=== PATIENT | male | born 1960 | race Caucasian/White ===

== ENCOUNTER 2022-08-12 10:57 | Inpatient (IN) | payer SELFPAY ==
--- OUTSIDE RECORDS SUMMARY | 2022-08-12 10:59 | XMS REPORT | Continuity of Care Document ---
:1960 Author Organization [facility] t Address [address] [place] [address] Care Team Providers Name Role Phone NEW ANAYA Attending Clinician Unavailable Problems This patient has no known problems. Allergies, Adverse Reactions, Alerts This patient has no known allergies or adverse reactions. Medications This patient has no known medications. Procedures This patient has no known procedures. Encounters Start End Encounter Admission Attending Care Care Encounter Source Date/Time Date/Time Type Type Clinicians Facility Department ID 2020-07-19 2020-07-20 Outpatient [facility] MED [id number] [facility] 13:10:00 21:09:00 Results This patient has no known results.
[2022-08-12 12:18] LABS: Absolute Lymphocytes (CBC) 1.4 K/uL (0.7-4.9); Hematocrit 44.6 % (39.6-49.0); Lymphocytes % 14.3 % (15.3-44.8); MCV 91.1 fL (80-100); MPV 7.3 fL (7.6-11.3)
[2022-08-12 12:32] LABS: Albumin 4.4 g/dL (3.4-5.0); Bilirubin Total 0.6 mg/dL (0.2-1.0); Potassium 4.4 mmol/L (3.5-5.1); Protein, Total 8.5 g/dL (6.4-8.2)
--- NOTE | 2022-08-12 12:55 | RAD REPORT ---
EXAM DESCRIPTION: CT - Chest Abdomen Pelvis W Cont - 08/12/2022 12:25 pm CLINICAL HISTORY: right flank pain, chest pain COMPARISON: No comparisons TECHNIQUE: Following dynamic enhancement using 100 milliliters nonionic IV contrast, axial imaging o f the chest, abdomen and pelvis was performed. Biphasic technique was utilized through the abdomen. No oral contrast administered. All CT scans are performed using dose optimization technique as appropriate and may include automated exposure control or mA/KV adjustment according to patient size. FINDINGS: Lungs are clear of mass and infiltrate. Minimal lung base atelectasis present. No pleural effusion, pleural thickening or pneumothorax. No significant aortic or pulmonary arterial tree findin g. Mediastinal and hilar regions show no mass or abnormal lymphadenopathy. No chest wall mass or axil bernadette lymphadenopathy. Small hiatal hernia is present. Distal esophagus near the hernia shows mild cir cumferential wall thickening. No mass is seen. This is of on certain significance given the absence o f symptoms. Nondisplaced fractures of the posterior right ninth and tenth ribs are present. The The liver, spleen and pancreas show no suspicious findings. Gallbladder and biliary tree are unremark able. Gallstones can be occult on CT imaging. Symmetric renal function is seen with no mass or hydro nephrosis. No adrenal abnormalities. Urinary bladder is distended with the dome at the umbilicus lev el. There is a focal 11 millimeter nodularity at the prostate -bladder junction. Overall prostate gla nd is not enlarged. A focal prostate mass or a urinary bladder base mass cannot be excluded. No dilated bowel loops or focal bowel wall thickening. No acute GI findings seen. No additional sites of fracture or acute bone finding identifiable. No significant vascular findings. IMPRESSION: Nondisplaced posterior right ninth and tenth rib fractures are present. No injury to adj acent structures. Small focal 11 mm mass at the prostate-bladder junction could be a prostate mass or a bladder base ma ss. Urinary bladder is distended with the dome of reaching the level of the umbilicus.
[2022-08-12] MEDS ORDERED: MORPHINE 4 MG/ML SYR ONE (13:13)
[2022-08-12] MEDS ORDERED: ONDANSETRON 4 MG/2 ML VIAL ONE (13:13)
[2022-08-12] MEDS ORDERED: HYDROMORPHONE HCL 1 MG/ML INJ ONE ×2 (13:26→15:24)
[2022-08-12 13:44] LABS: Urine Blood Trace-intact (Negative); Urine Glucose Negative (Negative); Urine Protein Negative (Negative); Urine pH 5.5 (5.0-7.0)
[2022-08-12 13:59] LABS: SARS-CoV-2 Antigen Rapid Res Negative (Negative)
--- NOTE | 2022-08-12 14:14 | EDPHYS ---
Physician Documentation [facility] Name: Ascencion Han Age: 61 yrs Sex: Male : 1960 Arrival Date: 08/12/2022 Time: 11:00 Bed 6 Private MD: ED Physician Matt Arellano HPI: 08/12 11:25 This 61 yrs old Male presents to ER via Ambulatory with complaints of Flank Pain. jmm 11:25 The patient complains of pain in the right flank. Onset: The symptoms/episode jmm began/occurred acutely, last night. Modifying factors: The symptoms are alleviated by remaining still, the symptoms are aggravated by movement, palpation/percussion. Associated signs and symptoms: Pertinent negatives: vomiting. Is a 61-year-old male with no known chronic medical conditions presents emerged part with complaints of right flank/rib pain beginning last night while he was performing heavy lifting. Denies shortness of breath, vomiting, dysuria.. Historical: - Allergies: 11:14 No Known Allergies; tw2 - Home Meds: 11:14 None [Active]; tw2 - PMHx: 11:14 None; tw2 - PSHx: 11:14 None; tw2 - Immunization history:: Client reports having NOT received the Covid vaccine. - Social history:: Smoking status: Patient denies any tobacco usage or history of. ROS: 11:25 Constitutional: Negative for fever, chills, and weight loss, Cardiovascular: Negative jmm for chest pain, palpitations, and edema, Respiratory: Negative for shortness of breath, cough, wheezing, and pleuritic chest pain. 11:25 Back: Positive for flank pain. 11:25 All other systems are negative. Exam: 11:25 Head/Face: atraumatic. Eyes: EOMI, no conjunctival erythema appreciated ENT: Moist jmm Mucus Membranes Neck: Trachea midline, Supple Cardiovascular: Regular rate and rhythm. No edema appreciated 11:25 Respiratory: Normal respirations, no respiratory distress appreciated Back: Normal ROM Skin: General appearance color normal MS/ Extremity: Moves all extremities, no obvious deformities appreciated, no edema noted to the lower extremities Neuro: Awake and alert Psych: Behavior is normal, Mood is normal, Patient is cooperative and pleasant 11:25 Constitutional: The patient appears alert, awake, anxious, uncomfortable. 11:25 Chest/axilla: Palpation: tenderness, that is moderate, of the right lateral posterior chest. Vital Signs: 11:11 BP 160 / 113; Pulse 98; Resp 17; Temp 98.8(TE); Pulse Ox 97% on R/A; Weight 79.38 kg tw2 (R); Height 5 ft. 8 in. (172.72 cm); Pain 10/10; 15:24 BP 152 / 104; Pulse 93; Resp 18; Pulse Ox 100% on R/A; ll1 16:30 BP 170 / 102; Pulse 93; Pulse Ox 96% ; kr3 18:32 BP 152 / 100; Pulse 92; Resp 18; Pulse Ox 97% ; kr3 11:11 Body Mass Index 26.61 (79.38 kg, 172.72 cm) tw2 MDM: 11:26 Patient medically screened. [facility] 14:12 Data reviewed: vital signs, nurses notes. Counseling: I had a detailed discussion with [facility] the patient and/or guardian regarding: the historical points, exam findings, and any diagnostic results supporting the discharge/admit diagnosis, lab results, radiology results, the need to transfer to another facility. ED course: We do not have urology self contained behavior unit teacher today. Patient has a preference for [facility]. . 15:08 ED course: [facility]. I did contact urology from [facility] in [facility] the [facility] who stated that the patient did not need inpatient care on a urologic standpoint. I discussed the patient with the hospitalist who declined transfer. I discussed the patient who recommends admission to this hospital to contact Dr. Myers. Dr. Myers was contacted via text.. 08/12 11:25 Order name: CBC with Diff; Complete Time: 12:32 [facility] 08/12 11:25 Order name: CMP; Complete Time: 12:32 [facility] 08/12 11:25 Order name: Lipase; Complete Time: 12:32 [facility] 08/12 13:29 Order name: SARS RAPID; Complete Time: 14:02 08/12 13:45 Order name: Urine Dipstick-Ancillary; Complete Time: 13:45 [facility] 08/12 16:52 Order name: CBC with Automated Diff [facility] 08/12 16:52 Order name: CBC with Automated Diff [facility] 08/12 16:52 Order name: Comprehensive Metabolic Panel [facility] 08/12 16:52 Order name: Comprehensive Metabolic Panel [facility] 08/12 16:52 Order name: Protime (+INR) [facility] 08/12 16:52 Order name: Protime (+INR) [facility] 08/12 16:52 Order name: PSA Diagnostic [facility] 08/12 16:52 Order name: PSA Diagnostic [facility] 08/12 16:52 Order name: PTT, Activated Partial Thromb [facility] 08/12 11:25 Order name: IV Saline Lock; Complete Time: 12:59 [facility] 08/12 11:25 Order name: Labs collected and sent; Complete Time: 12:59 [facility] 08/12 11:25 Order name: Urine Dipstick-Ancillary (obtain specimen); Complete Time: 13:43 [facility] 08/12 11:25 Order name: CT Chest, Abdomen, Pelvis - W/Contrast; Complete Time: 12:58 [facility] 08/12 13:10 Order name: Watt; Complete Time: 13:13 [facility] 08/12 16:52 Order name: Regular [facility] 08/12 16:52 Order name: PTT, Activated Partial Thromb [facility] 08/12 16:52 Order name: Bone Imaging Whole Body [facility] 08/12 16:52 Order name: Bone Imaging Whole Body [facility] Administered Medications: 13:05 Drug: morphine 4 mg Route: IVP; Infused Over: 4 mins; Site: right antecubital; kr3 15:22 Follow up: Response: No adverse reaction; RASS: Alert and Calm (0) ll1 13:05 Drug: Zofran (Ondansetron) 4 mg Route: IVP; Site: right antecubital; kr3 15:21 Follow up: Response: No adverse reaction; RASS: Alert and Calm (0) ll1 13:22 Drug: Dilaudid (HYDROmorphone) 1 mg Route: IVP; Site: left antecubital; kr3 15:21 Follow up: Response: No adverse reaction; RASS: Alert and Calm (0) ll1 15:20 Drug: Dilaudid (HYDROmorphone) 1 mg Route: IVP; Site: left antecubital; ll1 Disposition Summary: 08/12/22 15:34 Hospitalization Ordered Hospitalization Status: Observation matt Provider: Loli Myers Location: Telemetry/MedSurg (observation) jmm Condition: Stable(08/12/22 15:34) jmm Problem: new(08/12/22 15:34) jmm Symptoms: are unchanged(08/12/22 15:34) jmm Bed/Room Type: Standard m Room Assignment: 404(08/12/22 17:57) dw Diagnosis - Right 9th and 10th Fracture - Intractable Pain jmm Forms: - Medication Reconciliation Form jmm - SBAR form jmm Addendum: 08/15/2022 07:28 Co-signature as Attending Physician, Matt Arellano MD. r n Signatures: Dispatcher [employer] EDClaudia Sierra RN RN dw David Benton, JACQUES PA m Matt Arellano MD MD rn Pastora Prasad RN RN tw2 Ayesha Valle RN RN ll1 Radha Bartholomew RN RN kr3 Corrections: (The following items were deleted from the chart) 08/12 14:49 14:14 [facility] 14[facility]49 [facility]14 Higher level of care jmm m 14:49 14:14 Stable jmm jmm 14:49 14:14 new jmm jmm 14:49 14:14 are unchanged jmm m 14:49 14:14 Bladder Outlet Obstruction jmm jmm 14:49 14:14 Rib fracture jmm jmm 14:49 14:14 Bladder Mass jmm jmm 17:57 15:34 jmm dw
--- NOTE | 2022-08-12 14:14 | ER ---
Nurse's Notes [facility] Name: Ascencion Han Age: 61 yrs Sex: Male : 1960 Arrival Date: 08/12/2022 Time: 11:00 Bed 6 Private MD: Diagnosis: Right 9th and 10th Fracture - Intractable Pain Presentation: 08/12 11:11 Chief complaint: Patient states: my RIGHT side is hurting and it started last night. tw2 stays constant. Coronavirus screen: At this time, the client does not indicate any symptoms associated with coronavirus-19. Ebola Screen: Patient denies travel to an Ebola-affected area in the 21 days before illness onset. Initial Sepsis Screen: Does the patient meet any 2 criteria? HR > 90 bpm. No. Patient's initial sepsis screen is negative. Does the patient have a suspected source of infection? No. Patient's initial sepsis screen is negative. Initial Sepsis Screen: Does the patient meet any 2 criteria?. Risk Assessment: Do you want to hurt yourself or someone else? Patient reports no desire to harm self or others. Onset of symptoms was August 12, 2022. 11:11 Method Of Arrival: Ambulatory tw2 11:11 Acuity: MAXX 3 tw2 Triage Assessment: 11:14 General: Appears uncomfortable, well groomed, Behavior is calm, cooperative, tw2 appropriate for age. Pain: Complains of pain in right SIDE pain. GI: Reports right side pain Patient currently denies nausea, vomiting. Historical: - Allergies: 11:14 No Known Allergies; tw2 - Home Meds: 11:14 None [Active]; tw2 - PMHx: 11:14 None; tw2 - PSHx: 11:14 None; tw2 - Immunization history:: Client reports having NOT received the Covid vaccine. - Social history:: Smoking status: Patient denies any tobacco usage or history of. Screenin:16 Abuse screen: Denies threats or abuse. Nutritional screening: No deficits noted. tw2 Tuberculosis screening: No symptoms or risk factors identified. Fall Risk None identified. Assessment: 13:00 Reassessment: No changes from previously documented assessment. ll1 13:46 General: Appears distressed, uncomfortable, Behavior is cooperative, appropriate for kr3 age, restless. 15:00 Reassessment: No changes from previously documented assessment. Patient and/or family kr3 updated on plan of care and expected duration. Pain level reassessed. 16:00 Reassessment: No changes from previously documented assessment. Patient and/or family kr3 updated on plan of care and expected duration. Pain level reassessed. 17:00 Reassessment: No changes from previously documented assessment. Patient and/or family kr3 updated on plan of care and expected duration. Pain level reassessed. 18:00 Reassessment: No changes from previously documented assessment. Patient and/or family kr3 updated on plan of care and expected duration. Pain level reassessed. Vital Signs: 11:11 BP 160 / 113; Pulse 98; Resp 17; Temp 98.8(TE); Pulse Ox 97% on R/A; Weight 79.38 kg tw2 (R); Height 5 ft. 8 in. (172.72 cm); Pain 10/10; 15:24 BP 152 / 104; Pulse 93; Resp 18; Pulse Ox 100% on R/A; ll1 16:30 BP 170 / 102; Pulse 93; Pulse Ox 96% ; kr3 18:32 BP 152 / 100; Pulse 92; Resp 18; Pulse Ox 97% ; kr3 11:11 Body Mass Index 26.61 (79.38 kg, 172.72 cm) tw2 ED Course: 11:00 Patient arrived in ED. mr 11:02 David Benton PA is PHCP. jmm 11:03 Matt Arellano MD is Attending Physician. jmm 11:11 Arm band placed on. tw2 11:14 Triage completed. tw2 12:03 Radiology exam delayed due to lab results not completed at this time. (BUN/Creatinine) mw3 IV insertion attempt and/or patient not having appropriate IV at this time. 12:11 Initial lab(s) drawn, by me, sent to lab. Inserted saline lock: 20 gauge in left tm3 antecubital area, using aseptic technique. 12:27 CT Chest, Abdomen, Pelvis - W/Contrast In Process Unspecified. EDMS 13:00 Patient placed in an exam room, on a stretcher. ll1 13:02 Radha Bartholomew, YELENA is Primary Nurse. kr3 13:45 Watt cath inserted, using sterile technique, 18 Fr., by me, urine specimen collected. kr3 other coude. 14:06 initiated a transfer with Liana from the [facility] at the eb request of the patient. 14:19 per Liana, [facility] will have to decline at this time both facilities are at capacity. 14:22 initiated a transfer with Yadi from the [facility]/. eb 14:[address] Mustafa the urologist cognos consultant for [facility] with David Rubalcava for patient eb transfer consultation. 14:[address] Montes the hospitalist cognos consultant for [facility] with David Rubalcava for patient eb transfer consultation. 15:34 Loli Myers MD is Hospitalizing Provider. rj 18:30 No provider procedures requiring assistance completed. Patient admitted, IV remains in kr3 place. 18:31 Patient has correct armband on for positive identification. Bed in low position. Call kr3 light in reach. Administered Medications: 13:05 Drug: morphine 4 mg Route: IVP; Infused Over: 4 mins; Site: right antecubital; kr3 15:22 Follow up: Response: No adverse reaction; RASS: Alert and Calm (0) ll1 13:05 Drug: Zofran (Ondansetron) 4 mg Route: IVP; Site: right antecubital; kr3 15:21 Follow up: Response: No adverse reaction; RASS: Alert and Calm (0) ll1 13:22 Drug: Dilaudid (HYDROmorphone) 1 mg Route: IVP; Site: left antecubital; kr3 15:21 Follow up: Response: No adverse reaction; RASS: Alert and Calm (0) ll1 15:20 Drug: Dilaudid (HYDROmorphone) 1 mg Route: IVP; Site: left antecubital; ll1 Medication: 18:31 VIS not applicable for this client. kr3 Outcome: 14:14 ER care complete, transfer ordered by . rj 15:34 Decision to Hospitalize by Provider. rj 18:30 Admitted to Med/surg accompanied by tech, via stretcher, room 404, with chart, Report kr3 called to Eliz Gauthier RN on 18:30 Condition: stable 18:30 Instructed on the need for admit. 18:54 Patient left the ED. ll1 Signatures: Dispatcher [facility] EDMS Maria Fernanda Kamaljit tm3 David Benton PA PA anna marie Regis, Danielle mr Pastora Prasad, RN RN tw2 Vita Schroeder Michelle 3 Ayesha Valle RN RN ll1 Radha Bartholomew RN RN kr3 Corrections: (The following items were deleted from the chart) 14:29 14:06 initiated a transfer with Liana from the [facility] 18:02 18:01 Reassessment: No changes from previously documented assessment. Patient and/or kr3 family updated on plan of care and expected duration. Pain level reassessed. kr3
[2022-08-12] MEDS ORDERED: ACETAMINOPHEN 500 MG TAB PO PRN (16:45)
[2022-08-12] MEDS ORDERED: ONDANSETRON 4 MG/2 ML VIAL IV PRN (16:45)
[2022-08-12] MEDS ORDERED: MORPHINE 2 MG/ML SYR IV PRN (16:45)
[2022-08-12] MEDS: NA CHLORIDE 0.9% 1,000 ML IV SCH (20:27)
[2022-08-12 20:43] VITALS: O2SAT 98; BMI 26.6
[2022-08-12] MEDS: HYDROMORPHONE HCL 0.5 MG/0.5 ML INJ IV PRN (23:33)
[2022-08-13 04:29] LABS: Protime INR 1.04
[2022-08-13 04:30] LABS: Absolute Lymphocytes (CBC) 1.1 K/uL (0.7-4.9); Hematocrit 41.2 % (39.6-49.0); MCV 90.8 fL (80-100); MPV 7.5 fL (7.6-11.3); RBC Red Blood Cell Count 4.54 M/uL (4.33-5.43)
[2022-08-13 04:48] LABS: Albumin 3.8 g/dL (3.4-5.0); Bilirubin Total 1.5 mg/dL (0.2-1.0); Protein, Total 7.4 g/dL (6.4-8.2)
[2022-08-13] MEDS: HYDROMORPHONE HCL 0.5 MG/0.5 ML INJ IV PRN ×4 (05:15→20:38)
[2022-08-13] MEDS: NA CHLORIDE 0.9% 1,000 ML IV SCH ×3 (06:20→19:40)
--- NOTE | 2022-08-13 07:10 | P.HP ---
Certification for Inpatient Patient admitted to: Observation With expected LOS: <2 Midnights Patient will require the following post-hospital care: None Practitioner: I am a practitioner with admitting privileges, knowledge of patient current condition, hospital course, and medical plan of care. Services: Services provided to patient in accordance with Admission requirements found in Title 42 Section 412.3 of the Code of Federal Regulations Patient History Date of Service: 08/12/22 Reason for admission: Right flank tenderness History of Present Illness: patient is a 61-year-old gentleman came to the hospital with right flank tenderness. Pain was mainly in the right ribcage. Patient also noted to have bladder distension for ER. Patient denies any dysuria. He denies any urinary dribbling. He denies any dysuria. He denies any weight loss. He really is unable to give me much history. He did get some pain medication but he does not seem to recall a lot of with pain going on with him. He does not live with anyone. He has a girlfriend who lives in [place]. Patient works a night baker job. The pain started after he was moving ice packs. Patient had a CT scan done here which revealed prostate mass as well as a rib fracture in the 9/10th rib. No comment on pathologic fracture. Will check a PSA level. Will also get bone scan. Patient will be admitted for observation. Allergies No Known Allergies Allergy (Verified 08/12/22 23:22) - Past Medical/Surgical History Diabetic: No Past Medical History: Patient denies medical history Past Surgical History: Patient denies surgical history - Family History Brother Medical History: Cancer Family History: Reviewed- Non-Contributory Notes: colon cancer - Social History Smoking Status: Former smoker Alcohol use: Yes CD- Drugs: No Caffeine use: Yes Place of Residence: Home Review of Systems 10-point ROS is otherwise unremarkable Physical Examination - Vital Signs Temperature: 97.2 F Blood Pressure: 172/90 Pulse: 65 Respirations: 18 Pulse Ox (%): 98 - Physical Exam General: Alert, In no apparent distress, Oriented x3 HEENT: Atraumatic, PERRLA, Mucous membr. moist/pink, EOMI, Sclerae nonicteric Neck: Supple, 2+ carotid pulse no bruit, No LAD, Without JVD or thyroid abnormality Respiratory: Clear to auscultation bilaterally, Normal air movement Cardiovascular: Regular rate/rhythm, Normal S1 S2 Gastrointestinal: Normal bowel sounds, Soft and benign, Non-distended, No tenderness Musculoskeletal: Tenderness (right flank region) Integumentary: No rashes Neurological: Normal gait, Normal speech, Normal strength at 5/5 x4 extr, Normal tone, Normal affect Lymphatics: No axilla or inguinal lymphadenopathy - Studies Laboratory Data (last 24 hrs) 08/12/22 12:05: Sodium 131 L, Potassium 4.4, BUN 14, Creatinine 1.02, Glucose 118 H, Total Bilirubin 0.6, AST 36, ALT 54, Alkaline Phosphatase 80, Lipase 119 08/12/22 12:05: WBC 10.10, Hgb 15.4, Hct 44.6, Plt Count 392 Assessment & Plan - Problems (Diagnosis) (1) Rib fractures Current Visit: Yes Status: Acute (2) Urinary retention Current Visit: Yes Status: Acute (3) Prostate mass Current Visit: Yes Status: Acute - Plan Plan: 1. pain control 2. PSA level 3. reassess neurologic status in a.m. 4. bone scan to evaluate metastatic disease 5. repeat labs in a.m. 6. Observation hospitalization and anticipate discharge in a.m. if workup is negative. If PSA elevation outpatient urology referral as well as possibly outpt oncology referral pending bone scan. Discharge Plan: Home Plan to discharge in: 24 Hours - Advance Directives Does patient have a Living Will: No Does patient have a Durable POA for Healthcare: No - Code Status/Comfort Care Code Status Assessed: Yes Code Status: Full Code Critical Care: No Time Spent Managing PTS Care (In Minutes): 45
--- NOTE | 2022-08-13 12:18 | RAD REPORT ---
EXAM DESCRIPTION: NM - Bone Imaging Whole Body - 08/13/2022 12:04 pm CLINICAL HISTORY: Rib fractures. Metastatic disease COMPARISON: August 12, 2022 CT scan TECHNIQUE: 26.8 mci Tc MDPwas administered intravenously. Anterior and posterior whole body images were obtained. FINDINGS: Minimally increased radiotracer uptake involves several lower posterior right ribs. Increased radiotracer activity involves the left knee and shoulders. IMPRESSION: Minimal increased radiotracer activity involve several lower posterior right ribs. CT sc an demonstrates nondisplaced fractures which may be subacute Increased radiotracer activity involving left knee and shoulders probably secondary to arthritis
--- NOTE | 2022-08-13 18:00 | P.PN ---
Subjective Date of Service: 08/13/22 Chief Complaint: Right flank tenderness Subjective: No new changes No acute events overnight. He reports no urinary symptoms since his Watt catheter was placed. He continues to experience right rib pain. Review of Systems 10-point ROS is otherwise unremarkable Musculoskeletal: Other (right rib pain) Physical Examination - Vital Signs Temperature: 97.7 F Blood Pressure: 156/94 Pulse: 79 Respirations: 14 Pulse Ox (%): 94 - Physical Exam General: Alert, In no apparent distress, Oriented x3 HEENT: Atraumatic, PERRLA, Mucous membr. moist/pink, EOMI, Sclerae nonicteric Neck: Supple, JVD not distended Respiratory: Clear to auscultation bilaterally, Normal air movement Cardiovascular: No edema, Regular rate/rhythm, Normal S1 S2, No gallops, No rubs, No murmurs Gastrointestinal: Normal bowel sounds, Soft and benign, Non-distended, No tenderness, No rebound, No guarding Musculoskeletal: No clubbing, Other (tenderness to palpation along right rib cage) Integumentary: No rashes Neurological: Normal speech, Cranial nerves 3-12 intact, Normal affect Urinary: Watt catheter Assessment And Plan - Plan # Non-Displaced Right Posterior 9th and 10th Rib Fractures - concern for Pathologic Fractures # Urinary Retention secondary to Urologic Mass between Prostate-Bladder Junction (11 mm) - Discussed these findings with him and explained high concern for urology malignancy with pathologic bone fractures - Evaluation thus far: - PSA = 2.56 - Bone scan = "Minimal increased radiotracer activity involve several lower posterior right ribs. CT scan demonstrates nondisplaced fractures which may be subacute. Increased radiotracer activity involving left knee and shoulders probably secondary to arthritis " - Explained that he will need to have an immediate outpatient oncologic evaluation and he verbalized understanding - I spoke with Dr. Newman (Urology) who will arrange immediate post-hospitali zation follow-up - Attempted to discharge today, but he stated that his rib pain is too significant to move - Will keep in hospital one more day due to intractable pain - If doing well in the morning, possible discharge tomorrow Chas Ramires M.D. Discharge Plan: Home Plan to discharge in: 24 Hours
[2022-08-14] MEDS: HYDROCODONE/APAP 5/325 MG TAB PO PRN ×2 (01:27→08:30)
[2022-08-14] MEDS: HYDROMORPHONE HCL 0.5 MG/0.5 ML INJ IV PRN (03:29)
--- NOTE | 2022-08-14 07:36 | P.DS ---
Admission Date: 08/13/22 Discharge Date: 08/14/22 Disposition: ROUTINE DISCHARGE Discharge Condition: GOOD Reason for Admission: Right flank tenderness Consultations: 1. 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 Ascencion Han is a pleasant 61 year old male with no reported past medical history significant who was admitted to the [facility] on 08/12/2022 for rib pain following a mechanical ground level fall. He was admitted to the Medicine service. Upon further evaluation, he was found to have an 11 mm mass between his prostate and bladder as well as non-displaced right posterior 9th and 10th rib fractures. Due to concern for a urologic malignancy, his PSA was checked and he had a bone scan. His PSA returned at 2.56 and his bone scan revealed, "minimal increased radiotracer activity involve several lower posterior right ribs. CT scan demonstrates nondisplaced fractures which may be subacute. Increased radiotracer activity involving left knee and shoulders probably secondary to arthritis." He was also found to have urinary retention, for which a Watt catheter was placed. I consulted Urology (Dr. Newman), who agreed that he could be managed as an outpatient. He recommended discharge with outpatient follow-up as well as a Medical Oncology referral. He was discharged with an indwelling Watt catheter, which will be removed at his Urology appointment. On 08/14/2022, he was seen on morning rounds and deemed medically stable for discharge. He was discharged with instructions to schedule follow-up appointments with his PCP in 3-5 days, with Urology (Dr. Newman) in 3-5 days, and with Medical Oncology as soon as possible. He was provided a prescription for hydrocodone-acetaminophen. The patient and family members were given the opportunity to ask questions and reported no further questions. Furthermore, all questions were answered to the best of my ability. A PDMP review was completed, which revealed that, in the last year, he had 0 controlled substance prescriptions, from 0 providers, to 0 pharmacies. His opioid overdose risk score is 0. Today, I personally spent 25 minutes on his case, of which greater than 50% of the time was spent in patient education, counseling, and coordination of care as described above. - Physical Exam General: Alert, In no apparent distress, Oriented x3 HEENT: Atraumatic, PERRLA, Mucous membr. moist/pink, EOMI, Sclerae nonicteric Neck: Supple, JVD not distended Respiratory: Clear to auscultation bilaterally, Normal air movement Cardiovascular: No edema, Regular rate/rhythm, Normal S1 S2, No gallops, No rubs, No murmurs Gastrointestinal: Normal bowel sounds, Soft and benign, Non-distended, No tenderness, No rebound, No guarding Musculoskeletal: No clubbing, Other (tenderness to palpation along right rib cage) Integumentary: No rashes Neurological: Normal speech, Cranial nerves 3-12 intact, Normal affect Urinary: Watt catheter Vital Signs/Physical Exam: Temp Pulse Resp BP Pulse Ox 97.3 F 65 14 143/70 H 98 08/14/22 08:00 08/14/22 08:00 08/14/22 08:00 08/14/22 08:00 08/14/22 08:00 Laboratory Data at Discharge: WBC 9.10 K/uL (4.3-10.9) 08/13/22 03:53 Hgb 14.3 g/dL (13.6-17.9) 08/13/22 03:53 Hct 41.2 % (39.6-49.0) 08/13/22 03:53 Plt Count 292 K/uL (152-406) 08/13/22 03:53 PT 11.5 SECONDS (9.5-12.5) 08/13/22 03:53 INR 1.04 08/13/22 03:53 APTT 30.9 SECONDS (24.3-36.9) 08/13/22 03:53 Sodium 134 mmol/L (136-145) L 08/13/22 03:53 Potassium 4.0 mmol/L (3.5-5.1) 08/13/22 03:53 BUN 18 mg/dL (7-18) 08/13/22 03:53 Creatinine 0.91 mg/dL (0.55-1.3) 08/13/22 03:53 Glucose 106 mg/dL (74-106) 08/13/22 03:53 Total Bilirubin 1.5 mg/dL (0.2-1.0) H 08/13/22 03:53 AST 28 U/L (15-37) 08/13/22 03:53 ALT 45 U/L (12-78) 08/13/22 03:53 Alkaline Phosphatase 86 U/L (45-117) 08/13/22 03:53 Lipase 119 U/L (73-393) 08/12/22 12:05 Home Medications: Docusate [Colace Cap] 100 mg PO BID #60 cap 08/14/22 Lidocaine [Lidocaine Pain Relief] 1 each TP DAILY PRN #1 08/14/22 Polyethylene Glycol 3350 [Miralax] 17 gm PO DAILY PRN #30 08/14/22 RX: Hydrocodone 5/APAP 325 [[place] 5/325*] 1 tab PO Q6H PRN 3 Days #12 tab 08/14/22 New Medications: Docusate [Colace Cap] 100 mg PO BID #60 cap Lidocaine [Lidocaine Pain Relief] 1 each TP DAILY PRN #1 PRN Reason: Pain Scale 5-7 (Moderate) Polyethylene Glycol 3350 [Miralax] 17 gm PO DAILY PRN #30 PRN Reason: Constipation RX: Hydrocodone 5/APAP 325 [[place] 5/325*] 1 tab PO Q6H PRN 3 Days #12 tab PRN Reason: Pain Scale 8-10 (Severe) Physician Discharge Instructions: 1. Please schedule a follow-up appointment with your PCP in 3-5 days - Please speak with with your PCP regarding pain medication refills if pain medicine is still needed - Please use [id number] lidocaine patches as needed - Please use Colace and MiraLAX as needed as pain medications may cause constipation 2. Please schedule a follow-up appointment with Urology (Dr. Newman) in 3-5 days - He will discuss further evaluation of your prostate/bladder mass - Your urine catheter will need to be removed at the Urology appointment 3. Please schedule a consultation with an Oncologist (Cancer Doctor) as soon as possible If you have any questions regarding your hospital stay, please call [phone]. Diet: AHA Activity: Ad gwyn Followup: Markell Newman [ACTIVE - CAN ADMIT] - 1 Week (urologist- call to schedule an appointment) Time spent managing pt's care (in minutes): 25
[2022-08-14 08:48] VITALS: BP 143/70; TEMP 97.3
[2022-08-14] MEDS: NA CHLORIDE 0.9% 1,000 ML IV SCH (09:00)
== END 2022-08-14 09:38 | disposition home or self-care (01) | DRG 544 ==
LOC: ER 10:57 → ERHOLD 16:45 → 4TH 18:32 → OBSVTOIN 08-13 18:39
PROVIDERS: ADMIT Hospitalist; ATTEND Internal Medicine
DX: M84.58XA Pathological fracture in neoplastic disease, other specified site, initial encounter for fracture (principal); C61 Malignant neoplasm of prostate; M13.862 Other specified arthritis, left knee; R33.8 Other retention of urine; Z60.2 Problems related to living alone; Z28.310 Unvaccinated for COVID-19; Z87.891 Personal history of nicotine dependence; Z79.899 Other long term (current) drug therapy; Z20.822 Contact with and (suspected) exposure to COVID-19; W18.30XA Fall on same level, unspecified, initial encounter
CPT/HCPCS: 36415; 51702; 71260; 74177; 78306; 80053; 81003; 82565; 83690; 84153; 85025; 85610; 85730; 87811; 99285; A9503; G0378; J1170; J2270; J2405; J7030; Q9967